=== PATIENT | male | born 1965 | race Two or more races ===

== ENCOUNTER 2019-10-26 16:28 | Inpatient (IN) | payer MEDICAID ==
[~2019-10-26] VITALS: Ht 170.2 cm; Wt 74.8 kg
[2019-10-26] MEDS ORDERED: SODIUM CHLORIDE 0.9% 1,000 ML IV ONE (17:14)
[2019-10-26] MEDS ORDERED: AZITHROMYCIN 500 MG in DEXT 5% WATER 250 ML IV ONE (17:15)
[2019-10-26] MEDS ORDERED: CEFTRIAXONE 1 G PREMIX 50 ML IV ONE (17:15)
[2019-10-26] MEDS ORDERED: ACETAMINOPHEN 325MG TABLET PO ONE (17:30)
[2019-10-26] MEDS ORDERED: ACETAMINOPHEN 500MG TABLET PO NR (17:36)
[2019-10-26 18:45] LABS: BASOPHILS % 0.4 % (0.0-2.0); HEMATOCRIT. 37.2 % (42.0-52.0); LYMPHOCYTES % 13.6 % (20.0-50.0); MEAN CORPUSCULAR HEMOGLOBIN 30.4 pg (28.0-32.0); MEAN CORPUSCULAR VOLUME 87.3 fL (80.0-94.0); MEAN PLATELET VOLUME 8.8 fl (7.4-10.4); MONOCYTES % 3.8 % (2.0-8.0); NEUTROPHILS % 82.2 % (40.0-76.0); PLATELET 156 x1000/uL (130-400); RED BLOOD CELL COUNT 4.26 mill/uL (4.7-6.1); RED CELL DISTRIBUTION WIDTH 13.1 % (11.6-14.6)
[2019-10-26 18:48] LABS: CHLORIDE 104 mEq/L (98-107)
[2019-10-26 18:50] LABS: PROTHROMBIN TIME 10.8 sec (9.6-11.0)
[2019-10-26 19:24] LABS: CLARITY URINE CLEAR (CLEAR); COLOR URINE YELLOW (YELLOW); KETONES URINE NEGATIVE (NEGATIVE); LEUKOCYTE ESTERASE URINE NEGATIVE (NEGATIVE); NITRITE URINE NEGATIVE (NEGATIVE); OCCULT BLOOD URINE NEGATIVE (NEGATIVE); PROTEIN URINE 2+ (NEGATIVE); UROBILINOGEN URINE 0.2 E.U./dL (0.2-1.0)
[2019-10-26] MEDS ORDERED: IBUPROFEN 600MG TABLET PO ONE (20:45)
[2019-10-26 23:16] VITALS: BP 141/77
[2019-10-27] VITALS: BP 146/63
[2019-10-27] MEDS ORDERED: ALBUTEROL 6.7GM HFA INHALER ORI PRN ×2 (00:30→04:00)
[2019-10-27] MEDS ORDERED: ACETAMINOPHEN 325MG TABLET PO PRN (00:30)
[2019-10-27] MEDS ORDERED: CEFTRIAXONE 1 G PREMIX 50 ML IV SCH ×2 (00:30→09:00)
[2019-10-27] MEDS ORDERED: POTASSIUM CHLORIDE 20MEQ TABLET SR PO NR (01:00)
[2019-10-27 04:00] VITALS: BP_SYST 124; BP_SYST 128; BP_DIAS 59; BP_DIAS 72
[2019-10-27 06:37] LABS: CHLORIDE 106 mEq/L (98-107)
[2019-10-27 06:41] LABS: MEAN CORPUSCULAR HEMOGLOBIN 30.4 pg (28.0-32.0); MEAN CORPUSCULAR VOLUME 88.7 fL (80.0-94.0); PLATELET 156 x1000/uL (130-400); RED BLOOD CELL COUNT 4.29 mill/uL (4.7-6.1); RED CELL DISTRIBUTION WIDTH 12.8 % (11.6-14.6)
[2019-10-27] MEDS ORDERED: ONDANSETRON HCL 4MG/2ML INJ IV PRN (07:30)
[2019-10-27] MEDS ORDERED: LORAZEPAM 1MG TABLET PO PRN (07:30)
[2019-10-27 08:30] VITALS: BP 92/66
[2019-10-27] MEDS: DEXAMETHASONE 4MG TABLET PO SCH (08:30)
[2019-10-27] MEDS: CEFTRIAXONE 1,000 MG in DEXTROSE 5% WATER 50 ML IV SCH (08:31)
[2019-10-27] MEDS: ACETAMINOPHEN 325MG TABLET PO PRN ×2 (08:31→21:13)
[2019-10-27 08:40] LABS: CHLORIDE 107 mEq/L (98-107)
[2019-10-27] MEDS ORDERED: ENOXAPARIN 40MG/0.4ML SYR SUBCUT SCH ×2 (09:00)
[2019-10-27] MEDS ORDERED: DEXAMETHASONE 4MG TABLET PO SCH (09:00)
[2019-10-27 12:00] VITALS: BP 111/66
[2019-10-27] MEDS: AZITHROMYCIN 500 MG in DEXT 5% WATER 250 ML IV SCH (13:28)
[2019-10-27 16:00] VITALS: BP_SYST 102; BP_SYST 98; BP_DIAS 56; BP_DIAS 66
[2019-10-27] MEDS: ENOXAPARIN 80MG/0.8ML SYR SUBCUT SCH (17:28)
[2019-10-27 20:00] VITALS: BP 143/78
[2019-10-27] MEDS ORDERED: CEFTRIAXONE 1,000 MG in DEXTROSE 5% WATER 50 ML IV SCH (20:00)
[2019-10-27] MEDS ORDERED: AZITHROMYCIN 500 MG in DEXT 5% WATER 250 ML IV SCH (21:00)
[2019-10-28] VITALS: BP 152/83
[2019-10-28] MEDS: ACETAMINOPHEN 325MG TABLET PO PRN ×3 (01:30→13:23)
[2019-10-28 04:00] VITALS: BP 121/74
[2019-10-28] MEDS: ENOXAPARIN 80MG/0.8ML SYR SUBCUT SCH ×2 (06:25→17:38)
[2019-10-28 08:00] VITALS: BP 136/75
[2019-10-28] MEDS: CEFTRIAXONE 1,000 MG in DEXTROSE 5% WATER 50 ML IV SCH (09:02)
[2019-10-28] MEDS: DEXAMETHASONE 4MG TABLET PO SCH (09:03)
[2019-10-28] MEDS: GUAIFENESIN 600MG ER TABLET PO SCH ×2 (10:27→20:38)
[2019-10-28 12:00] VITALS: BP 106/85
[2019-10-28] MEDS: AZITHROMYCIN 500 MG in DEXT 5% WATER 250 ML IV SCH (13:23)
[2019-10-28] MEDS: ALBUTEROL 6.7GM HFA INHALER ORI SCH ×2 (13:23→17:38)
[2019-10-28 16:00] VITALS: BP 118/68
[2019-10-28 20:29] VITALS: BP 112/63
[2019-10-29 00:07] VITALS: BP 110/65
[2019-10-29] MEDS: ALBUTEROL 6.7GM HFA INHALER ORI SCH ×4 (00:13→17:16)
[2019-10-29 04:00] VITALS: BP_SYST 131; BP_SYST 158; BP_DIAS 74; BP_DIAS 77; BP_DIAS 84
[2019-10-29] MEDS: ACETAMINOPHEN 325MG TABLET PO PRN ×2 (04:37→20:54)
[2019-10-29] MEDS: ENOXAPARIN 80MG/0.8ML SYR SUBCUT SCH ×2 (05:56→17:17)
[2019-10-29 08:00] VITALS: BP 116/73
[2019-10-29] MEDS: GUAIFENESIN 600MG ER TABLET PO SCH ×2 (10:08→20:50)
[2019-10-29] MEDS: DEXAMETHASONE 4MG TABLET PO SCH (10:08)
[2019-10-29] MEDS: CEFTRIAXONE 1,000 MG in DEXTROSE 5% WATER 50 ML IV SCH (10:08)
[2019-10-29 12:00] VITALS: BP 118/65
[2019-10-29] MEDS: AZITHROMYCIN 500 MG in DEXT 5% WATER 250 ML IV SCH (13:09)
[2019-10-29 16:00] VITALS: BP 140/80
[2019-10-29 20:46] VITALS: BP 123/73
[2019-10-30 00:06] VITALS: BP 132/75
[2019-10-30] MEDS: ALBUTEROL 6.7GM HFA INHALER ORI SCH ×4 (03:00→17:55)
[2019-10-30 04:00] VITALS: BP 129/63
[2019-10-30] MEDS: ENOXAPARIN 80MG/0.8ML SYR SUBCUT SCH ×2 (05:57→17:55)
[2019-10-30 08:00] VITALS: BP 122/71
[2019-10-30] MEDS: GUAIFENESIN 600MG ER TABLET PO SCH (09:12)
[2019-10-30] MEDS: DEXAMETHASONE 4MG TABLET PO SCH (09:12)
[2019-10-30] MEDS: CEFTRIAXONE 1,000 MG in DEXTROSE 5% WATER 50 ML IV SCH (09:12)
[2019-10-30 12:00] VITALS: BP 131/78
[2019-10-30] MEDS ORDERED: DEXA6TAB MT (14:58)
[2019-10-30 16:00] VITALS: BP 138/92
[2019-10-30] MEDS: AZITHROMYCIN 500 MG in DEXT 5% WATER 250 ML IV SCH (16:15)
[2019-10-30 17:36] VITALS: BP 138/92
== END 2019-10-30 19:18 | disposition home or self-care (01) | DRG 720 ==
LOC: ER 16:28 → EDBEDREQ 19:01 → EDBEDREQTM 19:01 → EDBEDREQSVC 19:01 → EDBEDREQ 20:44 → EDBEDREQTM 20:44 → ENRESERV 21:02 → 7WST 22:36
PROVIDERS: ADMIT Internal Medicine; ATTEND Internal Medicine
DX: A41.89 Other specified sepsis (principal); U07.1 COVID-19; E87.6 Hypokalemia; D64.9 Anemia, unspecified; J12.89 Other viral pneumonia; R74.0 Nonspecific elevation of levels of transaminase and lactic acid dehydrogenase [LDH]; R19.7 Diarrhea, unspecified; D72.810 Lymphocytopenia; B97.89 Other viral agents as the cause of diseases classified elsewhere; J96.01 Acute respiratory failure with hypoxia
CPT/HCPCS: 36415; 71045; 80048; 80053; 81003; 83605; 83880; 84145; 84484; 85025; 85027; 87635; 93005; 96365; 99285; J0456; J0696; J1650; J2405; J7030; J7060; J8540